=== PATIENT | male | born 1975 | race Caucasian/White ===

== ENCOUNTER 2021-01-20 18:05 | Emergency (ER) | payer BC ==
[2021-01-20] MEDS ORDERED: Sodium Chloride 0.9% 1,000 ML IV ONE (18:30)
[2021-01-20] MEDS ORDERED: Sodium Chloride 0.9% 10 ML Syringe FLUSH PRN (18:30)
--- NOTE | 2021-01-20 19:06 | CR ---
[id number] RAD/RAD Chest PA And Lateral EXAM: RAD Chest PA And Lateral INDICATION: SHORT OF BREATH. COMPARISON: None. DISCUSSION: Mild bilateral infiltrates are suggested and could be seen in the context of COVID pneumonia. Normal heart size. No effusions. IMPRESSION: 1. Early bilateral infiltrates. Bernardino Bazzi MD 01/20/21 [id number] Thank you for allowing us to participate in the care of your patient.
--- NOTE | 2021-01-20 19:20 | EDM.PDOC ---
ED HPI GENERAL MEDICAL PROBLEM - General Chief Complaint: General Stated Complaint: fever, sob, covid +, diarrhea Time Seen by Provider: 01/20/21 18:54 Source of Information: Reports: Patient, Significant Other History Limitations: Reports: No Limitations - History of Present Illness INITIAL COMMENTS - FREE TEXT/NARRATIVE: Patient presents with fever, cough, decreased energy, diarrhea. It started with a head cold 8 days ago then 6 days ago a fever started. Highest temp was 102.5. He is controlling fever with Advil prn. He has a home oxygen sat monitor and has seen it down to 85% once and a couple times in the upper 80's. These have been when he had a fever. As soon as the temp is down the sats return to mid 90's. He has had diarrhea 3 times a day for 4 days. No vomiting. Appetite is down but he is drinking lots of water. He took a home Covid test today that was positive. Treatments [employer]: Reports: NSAIDS - Related Data Allergies Allergy/AdvReac Type Severity Reaction Status Date / Time No Known Drug Allergies Allergy Cannot Verified 01/20/21 18:28 Remember Home Meds: Home Meds . [No Known Home Meds] 01/20/21 [History] Social & Family History - Tobacco Use Tobacco Use Status *Q: Former Tobacco User Used Tobacco, but Quit: Yes Month/Year Tobacco Last Used: quit 20yrs ago - Caffeine Use Caffeine Use: Reports: Coffee - Recreational Drug Use Recreational Drug Use: No ED ROS GENERAL - Review of Systems Review Of Systems: See Below Constitutional: Reports: Fever, Weakness, Fatigue, Decreased Appetite HEENT: Denies: Ear Pain, Throat Pain, Vision Change Respiratory: Reports: Cough, Other (no chronic lung problems ). Denies: Shortness of Breath Cardiovascular: Reports: Chest Pain (sometimes a little tightness but only with inspiration). Denies: Lightheadedness, Syncope Endocrine: Reports: Fatigue GI/Abdominal: Reports: Diarrhea. Denies: Abdominal Pain, Constipation, Vomiting Musculoskeletal: Denies: Neck Pain, Shoulder Pain, Arm Pain, Back Pain, Hand Pain, Leg Pain Skin: Denies: Cyanosis, Jaundice, Mottled, Pallor, Diaphoresis Neurological: Denies: Confusion, Dizziness, Headache, Seizure, Syncope, Trouble Speaking, Difficulty Walking Psychiatric: Denies: Agitation, Anxiety, Confusion ED EXAM, GENERAL - Physical Exam Exam: See Below Exam Limited By: No Limitations General Appearance: Alert, WD/WN, No Apparent Distress Eye Exam: Bilateral Eye: EOMI, Normal Inspection, PERRL Ears: Normal External Exam, Hearing Grossly Normal Nose: Normal Inspection, No Blood Throat/Mouth: Normal Inspection, Normal Lips, Normal Voice, No Airway Compromise Head: Atraumatic, Normocephalic Neck: Normal Inspection, Full Range of Motion Respiratory/Chest: No Respiratory Distress, No Accessory Muscle Use, Crackles (lower 2/3 of right lung). No: Rhonchi, Wheezing, Stridor Cardiovascular: Regular Rate, Rhythm, No Murmur GI/Abdominal: Normal Bowel Sounds, Soft, Non-Tender, No Organomegaly, No Distention Back Exam: Normal Inspection, Full Range of Motion. No: CVA Tenderness (L), CVA Tenderness (R) Extremities: Normal Inspection, Normal Range of Motion. No: Chris's Sign (no swelling or tenderness with calf squeeze bilat) Neurological: Alert, Oriented, Normal Cognition, No Motor/Sensory Deficits Psychiatric: Normal Affect, Normal Mood Skin Exam: Warm, Dry, Intact, Normal Color, No Rash Course - Vital Signs Last Recorded V/S: Last Vital Signs Temp 96.6 F L 01/20/21 18:18 Pulse 71 01/20/21 18:18 Resp 20 01/20/21 18:18 BP 120/81 01/20/21 18:18 Pulse Ox 93 L 01/20/21 19:41 - Orders/Labs/Meds Orders: Active Orders 24 hr Category Date Time Status Peripheral IV Care [RC] . DIRECTED Care 01/20/21 18:30 Active Sodium Chloride 0.9% [Normal Saline] 100 ml Med 01/20/21 20:30 Active IV ASDIRECTED Sodium Chloride 0.9% [Saline Flush] Med 01/20/21 18:30 Active 10 ml FLUSH Q8HR PRN Peripheral IV Insertion Adult [OM.PC] Routine Oth 01/20/21 18:30 Ordered Medication Orders Sodium Chloride (Normal Saline) 100 mls @ 200 mls/hr IV ASDIRECTED AILEEN Last Admin: 01/20/21 20:49 Dose: 200 mls/hr Documented by: ELIZABETH Sodium Chloride (Sodium Chloride 0.9% 10 Ml Syringe) 10 ml FLUSH Q8HR PRN PRN Reason: keep vein open Last Admin: 01/20/21 20:13 Dose: 10 ml Documented by: GINI Labs: Laboratory Tests 01/20/21 01/20/21 01/20/21 Range/Units 18:50 18:50 18:50 WBC 4.78 L (5.00-10.00) 10^3/uL RBC 5.37 (4.50-6.00) 10^6/uL Hgb 15.3 (13.0-17.0) g/dL Hct 46.3 (40.0-52.0) % MCV 86.2 (82.0-92.0) fL MCH 28.5 (27.0-31.0) pg MCHC 33.0 (32.0-36.0) g/dL RDW 11.7 (11.5-14.5) % Plt Count 137 L (150-400) 10^3/uL MPV 9.8 (7.4-10.4) fL Immature Gran % (Auto) 0.2 (0.0-5.0) % Neut % (Auto) 63.4 (50.0-70.0) % Lymph % (Auto) 31.0 (20.0-40.0) % [place] % (Auto) 4.8 (2.0-8.0) % Eos % (Auto) 0.4 L (1.0-3.0) % Baso % (Auto) 0.2 (0.0-1.0) % Neut # (Auto) 3.03 (2.50-7.00) 10^3/uL Lymph # (Auto) 1.48 (1.00-4.00) 10^3/uL [place] # (Auto) 0.23 (0.10-0.80) 10^3/uL Eos # (Auto) 0.02 L (0.10-0.30) 10^3/uL Baso # (Auto) 0.01 (0.00-0.10) 10^3/uL Immature Gran # (Auto) 0.01 (0.00-0.50) 10^3/uL Sodium 140 (136-145) mmol/L Potassium 3.7 (3.5-5.1) mmol/L Chloride 101 (98-107) mmol/L Carbon Dioxide 31.4 (21.0-32.0) mmol/L Anion Gap 11.3 (5-15) mmol/L BUN 7 (7-18) mg/dL Creatinine 1.02 (0.51-1.17) mg/dL Est Cr Clr Drug Dosing 85.51 mL/min Estimated GFR (MDRD) > 60 mL/min Glucose 108 (70-140) mg/dL Lactic Acid (0.4-2.0) mmol/L Calcium 8.1 L (8.7-10.3) mg/dL Total Bilirubin 0.7 (0.2-1.0) mg/dL AST 44 H (15-37) U/L ALT 36 (14-63) U/L Alkaline Phosphatase 41 L (46-116) U/L C-Reactive Protein 7.7 H (0.0-0.9) mg/dL Total Protein 6.6 (6.4-8.2) g/dL Albumin 3.28 L (3.40-5.00) g/dL SARS CoV-2 RNA Rapid ARRON Positive H (NEGATIVE) 01/20/21 Range/Units 18:50 WBC (5.00-10.00) 10^3/uL RBC (4.50-6.00) 10^6/uL Hgb (13.0-17.0) g/dL Hct (40.0-52.0) % MCV (82.0-92.0) fL MCH (27.0-31.0) pg MCHC (32.0-36.0) g/dL RDW (11.5-14.5) % Plt Count (150-400) 10^3/uL MPV (7.4-10.4) fL Immature Gran % (Auto) (0.0-5.0) % Neut % (Auto) (50.0-70.0) % Lymph % (Auto) (20.0-40.0) % [place] % (Auto) (2.0-8.0) % Eos % (Auto) (1.0-3.0) % Baso % (Auto) (0.0-1.0) % Neut # (Auto) (2.50-7.00) 10^3/uL Lymph # (Auto) (1.00-4.00) 10^3/uL [place] # (Auto) (0.10-0.80) 10^3/uL Eos # (Auto) (0.10-0.30) 10^3/uL Baso # (Auto) (0.00-0.10) 10^3/uL Immature Gran # (Auto) (0.00-0.50) 10^3/uL Sodium (136-145) mmol/L Potassium (3.5-5.1) mmol/L Chloride (98-107) mmol/L Carbon Dioxide (21.0-32.0) mmol/L Anion Gap (5-15) mmol/L BUN (7-18) mg/dL Creatinine (0.51-1.17) mg/dL Est Cr Clr Drug Dosing mL/min Estimated GFR (MDRD) mL/min Glucose (70-140) mg/dL Lactic Acid 0.9 (0.4-2.0) mmol/L Calcium (8.7-10.3) mg/dL Total Bilirubin (0.2-1.0) mg/dL AST (15-37) U/L ALT (14-63) U/L Alkaline Phosphatase (46-116) U/L C-Reactive Protein (0.0-0.9) mg/dL Total Protein (6.4-8.2) g/dL Albumin (3.40-5.00) g/dL SARS CoV-2 RNA Rapid ARRON (NEGATIVE) Meds: Medications Generic Name Dose Route Start Last Admin Trade Name Delmy PRN Reason Stop Dose Admin Sodium Chloride 100 mls @ 200 mls/hr 01/20/21 20:30 01/20/21 20:49 Normal Saline IV 200 mls/hr ASDIRECTED AILEEN Administration Sodium Chloride 10 ml 01/20/21 18:30 01/20/21 20:13 Sodium Chloride 0.9% 10 Ml Syringe FLUSH 10 ml Q8HR PRN Administration keep vein open Discontinued Medications Generic Name Dose Route Start Last Admin Trade Name Freyoly PRN Reason Stop Dose Admin Azithromycin 500 mg 01/20/21 19:57 01/20/21 20:08 Azithromycin 250 Mg Tab PO 01/20/21 19:58 500 mg ONETIME ONE Administration Ceftriaxone Sodium 1 gm 01/20/21 19:57 01/20/21 20:09 Ceftriaxone 1 Gm Vial IVPUSH 01/20/21 19:58 1 gm ONETIME ONE Administration Sodium Chloride 1,000 mls @ 999 mls/hr 01/20/21 18:30 01/20/21 19:00 Normal Saline IV 01/20/21 19:30 999 mls/hr .BOLUS ONE Administration Iopamidol 75 ml 01/20/21 20:25 01/20/21 20:49 Iopamidol 755 Mg/Ml 75 Ml Bottle IVPUSH 01/20/21 20:26 75 ml ONETIME ONE Administration - Re-Assessments/Exams Free Text/Narrative Re-Assessment/Exam: 01/20/21 19:46 No clinical evidence of dvt/pe. Gave Rocephin 1gm and Zithromax 500 mg po. 01/20/21 21:47 CBC normal. CMP good. CRP 7.7. Covid positive. CT shows no evidence of PE. There are scattered areas of groundglass opacity seen throughout the lungs bilaterally, concerning for atypical viral pneumonia. Discussed findings and treatment recommendations with patient and his . He would like to get the antibody infusion for Covid tomorrow. We discussed the risks/benefits and checkoff sheet for the infusion. I discussed case with Dr. Mcdowell and she advised not doing the courses of antibiotics at this time. Patient will follow up if any worsening and bacterial pneumonia could be further considered at that time. O2 sats remain in 92-96% on RA in ER. We discussed sat levels that would necessitate hospitalization on oxygen. Patient discharged to home in stable condition. Departure - Departure Time of Disposition: 21:33 Disposition: Home, Self-Care 01 Condition: Good Clinical Impression: Pneumonia due to COVID-19 virus - Discharge Information Instructions: COVID-19 Frequently Asked Questions, Emergency Use Authorization (EUA) of the Moderna COVID-19 Vaccine: Fact Sheet for Recipients and Caregivers - FDA (11/08/2020) Referrals: Shirley Davis MD [Primary Care Provider] - Forms: ED Department Discharge Additional Instructions: Drink 8 cups of water daily. Tomorrow the hospital will call you with the time you should come for the antibody infusion. Follow up with your PCP if any questions or problems. If worsening, recheck in clinic or ER as needed. Sepsis Event Note (ED) - Evaluation Sepsis Screening Result: No Definite Risk - Focused Exam Vital Signs: Vital Signs Temp Pulse Resp BP Pulse Ox 01/20/21 19:41 93 L 01/20/21 18:18 96.6 F L 71 20 120/81 95 - My Orders Last 24 Hours: My Active Orders 01/20/21 18:30 Peripheral IV Care [RC] . DIRECTED Sodium Chloride 0.9% [Saline Flush] 10 ml FLUSH Q8HR PRN Peripheral IV Insertion Adult [OM.PC] Routine 01/20/21 20:30 Sodium Chloride 0.9% [Normal Saline] 100 ml IV ASDIRECTED - Assessment/Plan Last 24 Hours: My Active Orders 01/20/21 18:30 Peripheral IV Care [RC] . DIRECTED Sodium Chloride 0.9% [Saline Flush] 10 ml FLUSH Q8HR PRN Peripheral IV Insertion Adult [OM.PC] Routine 01/20/21 20:30 Sodium Chloride 0.9% [Normal Saline] 100 ml IV ASDIRECTED
[2021-01-20 19:31] LABS: ANION GAP 11.3 mmol/L (5-15); CHLORIDE,CL 101 mmol/L (98-107); SODIUM,NA 140 mmol/L (136-145)
[2021-01-20] MEDS ORDERED: cefTRIAXone 1 GM Vial IVPUSH ONE (19:57)
[2021-01-20] MEDS ORDERED: Azithromycin 250 MG Tab PO ONE (19:57)
[2021-01-20] MEDS ORDERED: Iopamidol 755 Mg/ML 75 ML Bottle IVPUSH ONE (20:25)
[2021-01-20] MEDS ORDERED: Sodium Chloride 0.9% 100 ML IV SCH (20:30)
--- NOTE | 2021-01-20 21:13 | CT ---
[id number] CT/CTA Chest EXAM: CT ANGIOGRAM CHEST INDICATION: DYSPNEA,COVID POSITIVE, PNEUMONIA COMPARISON: Radiograph same date. DISCUSSION: The pulmonary arteries are normal in appearance with no emboli identified. There are areas of consolidation scattered throughout both lungs. These findings are nonspecific, but compatible with the clinical history of COVID pneumonia. No pleural or pericardial effusion. Normal heart size. No mediastinal, hilar or axillary lymphadenopathy. Small sliding type hiatus hernia. Mild splenomegaly. IMPRESSION: 1. Multifocal consolidation scattered throughout all lobes of both lungs. 2. Negative for pulmonary embolism. Bernardino Bazzi MD 01/20/21 1973 Thank you for allowing us to participate in the care of your patient.
== END 2021-01-20 22:02 | disposition home or self-care (01) ==
LOC: KA.ED 18:05
DX: U07.1 COVID-19 (principal); J12.82 Pneumonia due to coronavirus disease 2019; Z87.891 Personal history of nicotine dependence
CPT/HCPCS: 36415; 71046; 71275; 80053; 83605; 85025; 86140; 87635; 96374; 99284; A9270; J0696; J7030; Q9967; U0002